=== PATIENT | male | born 1955 | race Caucasian/White ===

== ENCOUNTER 2020-07-30 08:12 | Outpatient (CLI) | payer OTHER, SELFPAY ==
--- NOTE | ~2020-07-30 | XR_ITS ---
XR knee RT 3V, XR knee LT 3V 07/30/2020 08:34 (accession [id number]), 07/30/2020 08:35 (accession [id number]) Indication: Bilateral knee pain Procedure: 4 views each knee Comparison: 05/22/2013 Findings: There is mild bilateral tricompartment osteoarthritis of the knees. No acute fracture or tr aumatic malalignment. Normal mineralization. No significant joint effusion. There are radiopaque dens ities anteriorly and posteriorly in the soft tissues above the knee, suspicious for foreign bodies. Impression: 1: Mild bilateral osteoarthritis of the knees. Reviewed, dictated and finalized at location A. Impression: 1: Mild bilateral osteoarthritis of the knees. Impression: 1: Mild bilateral osteoarthritis of the knees.
== END 2020-07-30 08:13 | disposition home or self-care (01) ==
LOC: ANHIMG 08:17
PROVIDERS: PCP Internal Medicine; Visit Provider Nurse Practitioner
DX: M17.0 Bilateral primary osteoarthritis of knee (principal)
CPT/HCPCS: 73562

== ENCOUNTER 2021-04-15 07:52 | Outpatient (CLI) | payer OTHER, SELFPAY ==
--- NOTE | ~2021-04-15 | XR_ITS ---
EXAMINATION: XR barium swallow DATE: 04/15/2021 08:43 INDICATION: Dysphagia, unspecified. TECHNIQUE: The patient drank thick barium, gas-producing crystals, and thin barium. Fluoroscopy of th e hypopharynx and esophagus was performed. Fluoroscopy exposure time was 0.4 minutes. The total numbe r of images was 199. The dose-area product was 1.6 Gy-cm^2. COMPARISON: None. FINDINGS: There is no mass or stricture of the esophagus. Esophageal motility is normal. There is a s mall sliding hiatal hernia. There was no gastroesophageal reflux with provocative maneuvers. IMPRESSION: 1. Small sliding hiatal hernia. Reviewed, dictated and finalized at location A. AT [employer]
== END 2021-04-15 07:53 | disposition home or self-care (01) ==
PROVIDERS: PCP Internal Medicine; Visit Provider Nurse Practitioner
DX: R13.10 Dysphagia, unspecified (principal); K44.9 Diaphragmatic hernia without obstruction or gangrene
CPT/HCPCS: 74220

== ENCOUNTER 2021-06-09 00:57 | Day surgery (SDC) | payer OTHER, SELFPAY ==
[2021-06-05 12:07] VITALS: BMI 29.8
[2021-06-09 11:02] VITALS: BP 155/100; PULSE 82; RESP 20; TEMP 35.9; O2SAT 97; BMI 30.3
[2021-06-09] MEDS: LACTATED RINGERS 1,000 ML 150 ML IV CONT (11:17)
--- NOTE | 2021-06-09 11:18 | WPDANESEPPF ---
Anes - Initial Pre Proc Eval Procedure: Operation Date: 06/09/21 13:00 Proposed Procedures p Esophagogastroduodenoscopy - Tra Tanner MD Date/Time: 06/09/21 11:18 Surgeon: Tra Tanner MD Pre Op Diagnosis: dysphagia Patient Data Age: 66 Gender: M Height: 1.7 m Weight: 87.9 kg Last Vital Signs Temp 35.9 C L 06/09/21 11:02 Pulse 82 06/09/21 11:02 Resp 20 06/09/21 11:02 BP 155/100 H 06/09/21 11:02 Pulse Ox 97 06/09/21 11:02 Allergies Allergy/AdvReac Type Severity Reaction Status Date / Time No Known Allergies Allergy Verified 06/09/21 11:00 Home Medications Medication Instructions Recorded Confirmed Type pantoprazole 40 mg tablet,delayed 40 mg PO QAM #30 tablet 04/10/21 06/05/21 Rx release amlodipine 5 mg tablet 5 mg PO DAILY #90 tablet 04/14/21 06/05/21 Rx latanoprost [Xelpros] 1 drp EACH EYE QPM 06/05/21 06/05/21 History lisinopril 40 mg PO DAILY 06/05/21 06/05/21 History Patient hx anesthesia problems: none Family hx anesthesia problems: none Results Review: All pre-operative results and documents have been reviewed as part of the pre-operative evaluation. [facility] Past Medical History Medical History (Updated 06/09/21 @ 11:19 by Miguel Eden MD) Degenerative arthritis of knee, bilateral Encounter for screening colonoscopy HTN (hypertension) Obese Family History Family History Father Patient's father is Other Diabetes mellitus Social History Social History Smoking status: Never smoker Second hand tobacco smoke exposure: Yes Alcohol intake: current Drinks per week: 2 Alcohol use details: Social Substance use: never Substance use type: does not use Gender identity (if verbalized by the patient): Male Spiritual care concerns: No Anes - Eval Final PreProcedure Day of Procedure 06/09/21 11:18 Patient weight: overweight Heart: regular rate and rhythm Lungs: clear to auscultation Airway: Mallampati scale class II Neurological: alert and oriented Last oral intake: >/= 8 hours ASA classification: II Emergent: no Anesthetic plan: proceed Anesthesia type and monitoring: general GIVS and standard monitoring Results Review: All pre-operative results and documents have been reviewed as part of the pre-operative evaluation. Informed Consent: The patient's anesthetic plan and its attendant risks and benefits were discussed with the patient/family/POA. Questions were solicited and answers provided to the satisfaction of the patient/family/POA.
--- NOTE | 2021-06-09 11:46 | PM.HPGS ---
History of Present Illness History of Present Illness Consent: Risks, benefits, and alternatives have been discussed and questions answered. Patient agrees to proceed with procedure. Chief complaint: dysphagia Narrative: Andrzej Colin is a 66 year old male who presents for evaluation of dysphagia. States symptoms have been going for approximately 2 years but is progressively getting worse. Reports dysphagia to solids and pills but not liquids. In fact, no longer taking omega 3 pill because he cant get it down. Feels sensation in mid-chest area. He will drink water or soda and food will eventually pass but it goes down slow. He denies any ER visit for food bolus. Reports reflux symptoms especially after large meals, tells me he will wake up in the middle of the night from acid reflux. He is now on Pantoprazole which has improved his reflux but not the dysphagia. He has been taking Aleve daily for at least a year or two. He denies any abdominal pain, fever, weight loss, diarrhea, constipation, change in bowel habits or blood in stool. Never had an EGD. He is a non-smoker. No hx of esophageal cancers. Recent barium swallow showed hiatal hernia but no strictures or masses (recs reviewed). Review of Systems Review of Systems: All systems reviewed & are unremarkable except as noted in HPI and below PMFSH Past Medical History Medical History Degenerative arthritis of knee, bilateral Encounter for screening colonoscopy HTN (hypertension) Obese Family History Family History Father Patient's father is Other Diabetes mellitus Social History Social History Smoking status: Never smoker Second hand tobacco smoke exposure: Yes Alcohol intake: current Drinks per week: 2 Alcohol use details: Social Substance use: never Substance use type: does not use Gender identity (if verbalized by the patient): Male Spiritual care concerns: No Meds Home Medications and Allergies Home Medications Medication Instructions Recorded Confirmed Type pantoprazole 40 mg tablet,delayed 40 mg PO QAM #30 tablet 04/10/21 06/05/21 Rx release amlodipine 5 mg tablet 5 mg PO DAILY #90 tablet 04/14/21 06/05/21 Rx latanoprost [Xelpros] 1 drp EACH EYE QPM 06/05/21 06/05/21 History lisinopril 40 mg PO DAILY 06/05/21 06/05/21 History Allergies Allergy/AdvReac Type Severity Reaction Status Date / Time No Known Allergies Allergy Verified 06/09/21 11:00 Vital Signs Vital Signs - 24 hr 06/09/21 11:02 Temperature 35.9 C L Pulse Rate 82 Respiratory Rate 20 Blood Pressure 155/100 H Pulse Oximetry 97 Exam Const: General: alert Orientation/consciousness: patient oriented x3 Resp: Auscultation: clear to auscultation bilaterally Cardio: Rhythm: regular rhythm GI: GI Palp: Yes Soft to palpation and No Tenderness to palpation present (GI) Neuro: General: patient oriented x3 Assessment and Plan Assessment and plan (1) Dysphagia: Code(s): R13.10 - Dysphagia, unspecified Status: Acute Assessment and Plan: EGD with possible biopsy or dilatation or cautery.
[2021-06-09] MEDS: BENZOCAINE (*SP) 60 ML SPRAY CAN (HURRICAINE) 1 SPRAY MUCOUS MEM (11:55)
[2021-06-09 12:07] VITALS: BP 119/71; PULSE 71; RESP 20; TEMP 35.9; O2SAT 94
[2021-06-09 12:17] VITALS: BP 125/85; PULSE 74; RESP 21; O2SAT 98
[2021-06-09 12:27] VITALS: BP 154/102; PULSE 76; RESP 22; O2SAT 98
== END 2021-06-09 12:45 | disposition home or self-care (01) ==
PROVIDERS: PCP Internal Medicine; Visit Provider Internal Medicine Gastroenterology
PROC: 0DJ08ZZ Inspection of Upper Intestinal Tract, Via Natural or Artificial Opening Endoscopic (ICD-10-PCS; CPT 43235; principal; 2021-06-09 13:00)
DX: K22.2 Esophageal obstruction (principal); K44.9 Diaphragmatic hernia without obstruction or gangrene; I10 Essential (primary) hypertension; E66.9 Obesity, unspecified; Z68.30 Body mass index [BMI] 30.0-30.9, adult
CPT/HCPCS: 43249; 88305; C1726; J2704; J7120

== ENCOUNTER 2023-11-15 16:00 | Outpatient (CLI) | payer OTHER, SELFPAY ==
--- NOTE | ~2023-11-15 | US_ITS ---
EXAMINATION: US venous doppler [facility] DATE: 11/15/2023 16:26 INDICATION: Other specified soft tissue disorders. Left lower limb swelling and edema. TECHNIQUE: Grayscale ultrasound images without and with compression and Doppler ultrasound images of the left lower extremity veins were obtained. COMPARISON: None. FINDINGS: The visualized portions of left common femoral vein, profunda (deep) femoral vein, femoral vein, popl iteal vein, peroneal veins, posterior tibial veins, and greater saphenous vein outflow are patent. IMPRESSION: 1. No deep venous thrombosis. Reviewed, dictated and finalized at location E.
== END 2023-11-15 16:01 | disposition home or self-care (01) ==
LOC: ANHIMG 16:00
PROVIDERS: PCP Nurse Practitioner; Visit Provider Internal Medicine
DX: M79.89 Other specified soft tissue disorders (principal)
CPT/HCPCS: 93971